=== PATIENT | female | born 1970 | race Caucasian/White ===

== ENCOUNTER 2016-09-20 14:42 | Emergency (ER) | payer BC, OTHER ==
[~2016-09-20] VITALS: Ht 162.6 cm; Wt 58.0 kg
[~2016-09-20 14:42] MED LIST: ALEV220T14 PO; ONDA4 PO
[2016-09-20 14:43] VITALS: BP 129/86; PULSE 99; RESP 12; TEMP 97.6; O2SAT 98
[2016-09-20 14:56] VITALS: BP 137/89; PULSE 96; RESP 18; TEMP 98.3; O2SAT 100
--- NOTE | 2016-09-20 15:10 | PD ---
HPI Chief Complaint: Respiratory Distress Time Seen by Provider: 15:06 Travel History International Travel<30 days: No Contact w/Intl Traveler<30days: No Traveled to known affect area: No History of Present Illness HPI 46-year-old female coming in with complaints of shortness of breath. Patient states she was recently admitted and discharged from [facility] in [place] with diagnosis of pulmonary embolism without cor pulmonale. Patient is currently on Ahlquist 10 mg twice a day for 5 days and then 5 mg twice a day 6 months. Patient states she went to her primary care physician Dr. Alcaraz today who had no idea what was going on according to the patient. Patient is upset and confused and wants to make sure she is safe. Patient is also scheduled to see a publicity consultant in follow-up in the next 2 weeks. Patient currently feels anxious, is worried about something worse happening. She has no acute symptoms otherwise. She has no known drug allergies. PFSH Past Medical History Diminished Hearing: No Musculoskeletal: Yes (herniated discs) Respiratory: Yes (PE ) ?: Not : 7 Para: 5 Miscarriage: 2 Past Surgical History Hysterectomy: Yes Social History Alcohol Use: No Tobacco Use: No Substance Use: No Allergies-Medications (Allergen,Severity, Reaction): Coded Allergies: No Known Allergies (Verified , 03/31/16) Reported Meds & Prescriptions Reported Meds & Active Scripts Active Zofran 4 Mg Tab (Ondansetron Hcl) 4 Mg Tab 4 Mg PO Q6HR Reported Aleve Arthritis (Naproxen Sodium) 220 Mg Tab 220 Mg PO BID Review of Systems Except as stated in HPI: all other systems reviewed are Neg General / Constitutional: No: Fever Eyes: No: Visual changes HENT: No: Headaches Cardiovascular: No: Chest Pain or Discomfort Respiratory: Positive: Shortness of Breath Gastrointestinal: No: Abdominal Pain Genitourinary: No: Dysuria Musculoskeletal: No: Pain Skin: No Rash Neurologic: No: Weakness Psychiatric: No: Depression Endocrine: No: Polydipsia Hematologic/Lymphatic: No: Easy Bruising Physical Exam Narrative GENERAL: Patient appears anxious and in mild distress. SKIN: Warm and dry. Normal color. Normal turgor. HEAD: Atraumatic. Normocephalic. EYES: Pupils equal and round. No scleral icterus. No injection or drainage. ENT: No nasal bleeding or discharge. Mucous membranes pink and moist. Pharynx is normal. NECK: Trachea midline. No JVD. Supple and nontender. CARDIOVASCULAR: Regular rate and rhythm. No murmurs gallops or rubs. RESPIRATORY: No accessory muscle use. Clear to auscultation. Breath sounds equal bilaterally. GASTROINTESTINAL: Abdomen soft, non-tender, nondistended. Hepatic and splenic margins not palpable. MUSCULOSKELETAL: Extremities without clubbing, cyanosis, or edema. No obvious deformities. NEUROLOGICAL: Awake and alert. No obvious cranial nerve deficits. Motor grossly within normal limits. Five out of 5 muscle strength in the arms and legs. Normal speech. PSYCHIATRIC: Appropriate mood and affect; insight and judgment normal. Data Data Last Documented VS Vital Signs Date Time Temp Pulse Resp B/P Pulse Ox O2 Delivery O2 Flow Rate FiO2 09/20/16 14:59 93 20 100 Room Air 09/20/16 14:56 98.3 137/89 MDM Medical Decision Making Medical Screen Exam Complete: Yes Emergency Medical Condition: No Differential Diagnosis Pulmonary emboli. Anxiety. Shortness of breath. Narrative Course Patient is discussed with Dr. Silvestre. Records from [facility] are requested and reviewed. Patient is seen by Dr. Silvestre. Patient is felt to be stable to be discharged home on the current treatment of Eliquist as previously prescribed. Patient is reassured, based on our review of her previous hospitalization records and are exam today that she should be fine and is appropriately treated. Patient should follow with Dr. Alarcon in 10-14 days as planned. Recommend follow with Dr. Wellington, the fire fighter crash fire and rescue as well. Patient is free to return at any time for worsening symptoms. Diagnosis Primary Impression: Pulmonary emboli Qualified Code: I26.09 - Other acute pulmonary embolism with acute cor pulmonale Referrals: Reta Wellington MD, Theodossis MD Patient Instructions: General Instructions Additional Instructions: Patient is felt to be stable to be discharged home on the current treatment of Eliquist as previously prescribed. Patient is reassured, based on our review of her previous hospitalization records and are exam today that she should be fine and is appropriately treated. Patient should follow with Dr. Alarcon in 10-14 days as planned. Recommend follow with Dr. Wellington, the fire fighter crash fire and rescue as well. Patient is free to return at any time for worsening symptoms. Med/Other Pt SpecificInfo: No Change to Meds Disposition: 01 DISCHARGE HOME Condition: Stable Miko Graf Sep 20, 2016 15:10
--- NOTE | 2016-09-20 16:46 | PD ---
Data Data Last Documented VS Vital Signs Date Time Temp Pulse Resp B/P Pulse Ox O2 Delivery O2 Flow Rate FiO2 09/20/16 14:59 93 20 100 Room Air 09/20/16 14:56 98.3 137/89 MDM Supervised Visit with DAPHNE: Yes Narrative Course The history, exam, and medical decision-making in the associated midlevel provider note were completed with my assistance. I reviewed and agree with the findings presented. I attest that I had a [id number] encounter with the patient on the same day, and personally performed and documented my assessment and findings in the medical record. *My assessment and Findings: This is a 46-year-old female who presents to the emergency department having been seen at [facility] and diagnosed with pulmonary emboli, started on Eliquis. The patient was confused by her discharge instructions, and she came here to try to understand what was going on. She said that she was getting mixed signals from the doctors there as to whether or not she even had a blood clot on her imaging. We obtained records from [facility]. They sent the discharge summary but failed to send CT reads. The discharge summary states pulmonary embolus. I told the patient I would continue eloquent sets instructed and follow-up with both Dr. Watkins as well as a general office dispatcher. I suspect that there was some uncertainty of the clinical significance of her PEs as they were likely subsegmental. At this point I encouraged her to continue anticoagulation until she follows up with hematology. Micki Silvestre MD Sep 20, 2016 16:46
== END 2016-09-20 17:20 | disposition home or self-care (01) ==
LOC: NEPE 14:42
DX: I26.99 Other pulmonary embolism without acute cor pulmonale (principal)
CPT/HCPCS: 99284

== ENCOUNTER 2017-09-01 08:06 | Day surgery (SDC) | payer OTHER ==
[~2017-09-01] VITALS: Ht 152.4 cm; Wt 54.7 kg
[2017-09-01] MEDS ORDERED: IOHEXOL 350 MG/ML 50 ML BTL (for Cath Lab) OTHER ONE (08:07)
[2017-09-01 08:44] VITALS: BP 134/83; PULSE 79; RESP 19; TEMP 98.5; O2SAT 99
[2017-09-01] MEDS ORDERED: NS 1000P @30 MLS/HR (KVO) IV SCH (08:45)
[2017-09-01] MEDS ORDERED: IBUP200C PO (08:53)
[2017-09-01] MEDS ORDERED: CYCL10TA PO (08:53)
[2017-09-01] MEDS ORDERED: CELE50CA PO (08:53)
[2017-09-01 08:58] LABS: AUTOMATED NEUTROPHIL # 5.3 TH/MM3 (1.8-7.7); BASOPHIL # 0.1 TH/MM3 (0-0.2); BASOPHIL % 0.8 % (0.0-2.0); EOSINOPHIL # 0.1 TH/MM3 (0-0.4); EOSINOPHIL % 1.2 % (0.0-4.0); HEMATOCRIT 35.1 % (35.0-46.0); HEMOGLOBIN 11.3 GM/DL (11.6-15.3); LYMPH % 17.8 % (9.0-44.0); LYMPHOCYTE # 1.3 TH/MM3 (1.0-4.8); MEAN CELL VOLUME 72.6 FL (80.0-100.0); MEAN CORPUSCULAR HEMOGLOBIN 23.3 PG (27.0-34.0); MEAN CORPUSCULAR HGB CONC 32.2 % (32.0-36.0); MEAN PLATELET VOLUME 7.2 FL (7.0-11.0); MONO % 6.1 % (0.0-8.0); MONOCYTE # 0.4 TH/MM3 (0-0.9); NEUT % 74.1 % (16.0-70.0); PLATELET COUNT 305 TH/MM3 (150-450); RED BLOOD COUNT 4.84 MIL/MM3 (4.00-5.30); RED CELL DISTRIBUTION WIDTH 16.5 % (11.6-17.2); WHITE BLOOD COUNT 7.2 TH/MM3 (4.0-11.0)
[2017-09-01 09:07] LABS: PROTHROMBIN TIME - PATIENT 9.9 SEC (9.8-11.6)
[2017-09-01 09:19] LABS: BICARBONATE 24.2 MEQ/L (21.0-32.0); CALCIUM 8.8 MG/DL (8.5-10.1); CREATININE 0.69 MG/DL (0.50-1.00)
[2017-09-01] MEDS ORDERED: HEPARIN-NS/PF INJ 1,000 ML ONE (11:10)
[2017-09-01] MEDS ORDERED: VERAPAMIL HCL 5 MG/2 ML VIAL ONE (11:11)
[2017-09-01] MEDS ORDERED: MIDAZOLAM HCL 2 MG/2 ML VIAL ONE (11:11)
[2017-09-01] MEDS ORDERED: NITROGLYCERIN INJ 5 ML ONE (11:11)
[2017-09-01] MEDS ORDERED: HEPARIN SODIUM - IV 10,000 UNITS/10 ML VIAL ONE (11:11)
--- NOTE | 2017-09-01 12:00 | CATHPROC ---
[employer] HIS Report Study Information Study Number Admission Scheduled Start Study Start [id number] Sep 01 2017 8:06AM 09/01/2017 Sep 01 2017 11:11AM [place] [facility] Cardiac Catheterization Admit Source Facility Department Other [facility] - Steam Table Worker Physician and Clinical Staff Initial Navid Dillard Languages And Literature InstructorMoiz Ko RN Languages And Literature Instructorander Aden RN, Nino Languages And Literature InstructorAshley Bajwa RN Recorder Segundo Zambrano,RT(R) Scrub Nikki KuhnRT(R) Procedures Performed Procedure Location (Site) Vessel Name Coronary Angiograms LCA Left Coronary Coronary Angiograms RCA Right Coronary L Heart Cath Equipment Time Cut Tobacco Bulker Description Size Mfg Part Number Used/Scraped TRANSDUCER, TRUWAVE [id number] 11:22 PERRY SANTACRUZ * Used W/STOCKCOCK *[id number] *[id number] [id number] *[id number] 11:22 [employer] PACK, CCL CUSTOM * Used *[id number] 11:22 [employer] SUPPORT, ARTERIAL ADULT [id number] *[id number] Used BAND, RADIAL COMPRESSION TR [id number] 11:54 [employer] MEDICAL 24CM Used SHORT 24 *[id number] 11:22 [employer] WIRE, EXCHANGE 260CM 3MMJ 260CM Used *[id number] 11:22 NAMIC MANIFOLD, 4 PORT * Used *[id number] 11:22 NYCOMED OMNIPAQUE, 350 MG, 150ML 150ML [id number] Used [id number] 11:22 [employer]AMING MEDICAL BLANKET,WARM AIR CCL * Used *[id number] SHEATH, FR6 TRANSRADIAL [id number] 11:22 [employer] FR 6 Used SLENDER 10CM *[id number] History: Allergies Allergy Reaction No Known Allergies History: Risk Factors Family History of Hypertension Dyslipidemia Previous MO Previous Heart Failure Premature CAD Yes No No No No Prior Valve Prior PCI Prior CABG Surgery No No No Cerebrovascular Peripheral Artery Chronic Lung On Dialysis Diabetes Disease Disease Disease No No No Yes No History: Symptoms/Diagnosis Selection Items Chest pain History: Stress Tests Stress or Imaging Studies Performed Yes Standard Exercise Stress Test No Stress Echo No Stress Test SPECT Stress Test SPECT Result Stress Test SPECT Ischemia Risk/Extent Yes Positive Low Stress Test CMR No Cardiac CTA Coronary Calcium Score No No History: Other Disease Selection Items HTN History: Other Current Smoker Quit Packs a Day Years Used Pack Years No 15 Years Ago 1 10 10 Labs Hgb (g/dl) Hct (%) RBC (MIL/MM3) WBC (l/cumm) Platelets (thousands) 11.60-17.00 35.00-51.00 4.00-5.90 4.00-11.00 150.00-450.00 11.3 35.1 4.8 7.2 305 Glucose (mg/dl) BUN (mg/dl) Creatinine (mg/dl) BUN:Creatinine (1:x) 74.00-106.00 7.00-18.00 0.50-1.30 10.00-20.00 94 16 0.7 22.9 Na (meq/l) K (meq/l) Cl (meq/l) CO2 (mmol/L) Ca (mg/dl) 136.00-145.00 3.50-5.10 98.00-107.00 21.00-32.00 8.50-10.10 137 3.8 105 24.2 8.8 PT (sec) PTT (sec) INR (PTT:PT) 9.80-11.60 24.30-30.10 0.90-1.10 9.9 24.5 1 CPK-MB (ng/ML) 0.50-3.60 Not Drawn Medication Medication Total Dose (Bolus/Oral) Medication Total Dosage/Unit 1% XYLOCAINE 5 mL RADIAL COCKTAIL 5 mL (Bolus) VERSED 0.5 mg Medications (Bolus/Oral) Medication Time Given Dosage/Unit Administered By Reason 09/01/2017 11:37:24 VERSED 0.5 mg Moiz Shirley AM 0.5 mg VERSED given in lab by Moiz Shirley RN in Left Antecubital via Peripheral IV. 09/01/2017 11:37:55 1% XYLOCAINE 5 mL Navid Morales AM 5 mL 1% XYLOCAINE given in lab by Navid Morales in Right Radial via Subcutaneous. 09/01/2017 11:39:50 Ntg 200mcg Verapamil 2.5mg Heparin RADIAL COCKTAIL 5 mL (Bolus) Navid Morales AM 2000U 5 mL (Bolus) RADIAL COCKTAIL given in lab by Navid Morales in Right Radial via Radial. Using [S olution Name]. Reason: Ntg 200mcg Verapamil 2.5mg Heparin 2000U. Medication (Drip) Medication Time Given Dosage/Unit Concentration/Unit Diluent (ml) Solution 09/01/2017 11:12:56 IV Solutions 0 mL (IV) 500 NaCl .9 AM IV Solutions given in lab by Nino Aden RN in Left Antecubital via Peripheral IV. Pump/Drip Flow = 20 ml/hr using NaCl .9. Initial Case Assessment Cardiovascular HR Rhythm NIBP Chest Pain 72 Sinus 116/70 0 Edema Present Skin color Skin None Normal Warm Dry Circulatory - Right Pulses Dorsalis Pedis Femoral Radial 2 2 2 Scale (0,1,2,3,4,d) Scale (0,1,2,3,4,d) Neurological State Oriented to time-place- Alert Moves all extremities person Respiration - General Respiration Rate SpO2 (%) O2 (lpm) (B/min) 13 100 0 Final Case Assessment Cardiovascular HR Rhythm NIBP Chest Pain 90 Sinus 111/76 0 Edema Present Skin color Skin None Normal Warm Dry Circulatory - Right Pulses Dorsalis Pedis Femoral Radial 2 2 2 Scale (0,1,2,3,4,d) Scale (0,1,2,3,4,d) Neurological State Oriented to time-place- Alert Moves all extremities person Respiration - General Respiration Rate SpO2 (%) O2 (lpm) (B/min) 10 100 0 Chronological Log Time Study Chronological Log 11:12:13 Patient arrived via Bed. 11:12:14 Patient Name, D.O.B, / Armband Verified By R.N. 11:12:14 Consent signed by the physician and the patient and verified by the Steam Table Worker staff. 11:12:15 Pre-op and post- op instructions given; patient acknowledges understanding of instructions. 11:12:16 Verbal Stimulation=2 Physical Stimulation=2 Airway=2 Respiration=2 TOTAL=8. (0=absent, 1=li mited, 2=present) 11:12:18 Presedation assessment performed by Steam Table Worker RN. 11:12:46 Allens test performed on the right radial and ulnar artery. 11:12:49 Patient has been NPO for More than 6Hrs. 11:12:50 Skin Breakdown- none per patient. 11:12:51 Patient Warmer Placed on the Table. 11:12:52 Steve Prominences Protected 11:12:55 A # 20 IV was noted in the Antecubital (left). Grade = 0 IV Solutions given in lab by Nino Aden RN in Left Antecubital via Peripheral IV. Pump/Drip F low = 20 ml/hr using NaCl 11:12:56 .9. 11:12:57 History and physical on the chart or being dictated. Vitals capture started with the following parameters, Patient=Adult, Interval=5 min, Initial Pr xkwlzd=746 mmHg, 11:18:51 Deflation Rate=5 mmHg, Cuff placed on Left Arm 11:19:32 HR=66 bpm, RSXJ=100/70 mmhg, JyH2=210.0 %, Resp=9 B/min, Pain=0, Reba=10, Biswas=2 Assessment: Initial Case, HR=72 BPM, Rhythm=Sinus, IJWZ=119/70 mmhg, Chest Pain=0, Edema=None, Color=Normal, Skin = Warm, Dry 11:22:27 Right Pulses: Oscar Ped=2, Femoral=2, Radial=2 Neurological: State=Alert, Ox3, HYMAN Respiration: Resp=13 B/min, QuB3=259 %, O2=0 lpm 11:22:32 Right Radial and groin(s) prepped with 2% chlorhexidine, and draped after a 3 min. waiting time. 11:22:49 Reference ECG taken 11:24:23 HR=95 bpm, SCUL=696/74 mmhg, Resp=26 B/min, Pain=0, Reba=10, Biswas=2 11:26:34 Pressure channel 1 zeroed. 11:29:20 HR=72 bpm, UYVA=499/74 mmhg, Resp=10 B/min, Pain=0, Reba=10, Biswas=2 11:30:25 MD paged 11:31:29 MD arrived. 11:34:21 HR=83 bpm, XPET=550/79 mmhg, IpR8=108.0 %, Resp=9 B/min, Pain=0, Reba=10, Biswas=2 11:37:24 0.5 mg VERSED given in lab by Moiz Shirley RN in Left Antecubital via Peripheral IV. Time Out. Correct patient, correct procedure, correct physician, power injector not loaded with contrast with surgical 11:37:31 team present. Time Out Concurred by MD and individual staff in procedure. 11:37:42 Case Start 11:37:55 5 mL 1% XYLOCAINE given in lab by Navid Morales in Right Radial via Subcutaneous. 11:39:02 Access site was Radial Artery. 11:39:22 HR=76 bpm, DMFW=027/72 mmhg, Resp=12 B/min, Pain=0, Reba=10, Biswas=2 A SHEATH, FR6 TRANSRADIAL SLENDER 10CM FR 6 was advanced into the Radial (right) using the Perc utaneous 11:39:25 technique. 5 mL (Bolus) RADIAL COCKTAIL given in lab by Navid Morales in Right Radial via Radial. Us ing [Solution Name]. 11:39:50 Reason: Ntg 200mcg Verapamil 2.5mg Heparin 2000U. A JR 4.0 INFINITI CATHETER FR 5 was advanced over a wire. OMNIPAQUE, 350 MG, 150ML 150ML was us ed for 11:41:01 injections. Recorded Pressure: LV, HR=93, Condition=Condition 1 11:42:11 (Left Ventricle) LV 108/2/4 Recorded Pressure: LV, Ao, HR=87, Condition=Condition 1 11:42:24 (Left Ventricle) LV 106/2/4, (Aorta) Ao 115/77/94 Recorded Pressure: Ao, HR=92, Condition=Condition 1 11:42:44 (Aorta) Ao 108/75/91 11:42:56 The RCA was injected and visualized at various angles. OMNIPAQUE, 350 MG, 150ML 150ML use d. After removing the current catheter a JL 3.5 INFINITI CATHETER FR 5 was advanced over a WIRE, EXCHANGE 260CM 11:44:02 3MMJ 260CM. 11:44:25 HR=98 bpm, ZPPF=965/74 mmhg, SpO2=98.0 %, Resp=14 B/min, Pain=0, Reba=10, Biswas=2 11:46:54 The LCA was injected and visualized at various angles. OMNIPAQUE, 350 MG, 150ML 150ML use d. 11:48:58 Catheter was removed 11:49:24 Case End 11:49:25 HR=90 bpm, YEFY=201/76 mmhg, SpO2=99.0 %, Resp=14 B/min, Pain=0, Reba=10, Biswas=2 Radial Compression Device Used. 10 mLs of air placed in BAND, RADIAL COMPRESSION TR SHORT 24 2 4CM. Affected 11:53:27 hand 100 % O2 saturation. 11:54:13 Vitals capture stopped. 11:54:16 Cine recording checked. 11:54:17 No case complications noted. 11:54:19 Bedside Report will be given. 11:54:24 A Left Heart Cath was performed. Assessment: Final Case, HR=90 BPM, Rhythm=Sinus, DCBE=902/76 mmhg, Chest Pain=0, Edema=None, Color=Normal, Skin = Warm, Dry 11:54:27 Right Pulses: Oscar Ped=2, Femoral=2, Radial=2 Neurological: State=Alert, Ox3, HYMAN Respiration: Resp=10 B/min, UrZ3=944 %, O2=0 lpm 11:55:17 Patient moved to stretcher End Study - Contrast Media Used In Study Contrast Total Opened (mL) Total Used (mL) Total Wasted (mL) Omnipaque 150 35 115 End Study - Maximum Contrast Load Max Contrast Load (mL) 385.7 End Study - Radiation Exposure Fluoro Time (minutes) 1.9 End Study - Patient Disposition Complications Transferred To Interventional Outcome No Outpatient Bed No attempt made
[2017-09-01] MEDS ORDERED: ACETAMINOPHEN 325 MG TAB PO ONE (12:30)
--- NOTE | 2017-09-01 12:41 | MA ---
cc: NAVID BOYLE DO DATE OF PROCEDURE September 01, 2017 PROCEDURE Left heart catheterization, coronary angiogram, moderate sedation 15 minutes. PREPROCEDURE DIAGNOSIS Chest pain, abnormal stress test. POSTPROCEDURE DIAGNOSIS Mild coronary artery disease. MEDICATIONS 1. Versed 0.5 mg. 2. Verapamil 2.5 mg. 3. Nitro 200 mcg. 4. Heparin 2200 units. CONTRAST 35 cc FLUOROSCOPY 1.9 minutes ANESTHESIA Moderate sedation, 15 minutes ESTIMATED BLOOD LOSS 10 cc PROCEDURAL SUMMARY Nisha Stokc is a pleasant 47-year-old female who sees my partner Dr. Montana in the office and presented due to chest pain and shortness of breath. She underwent an echocardiogram and there was a mild cardiomyopathy noted with an ejection fraction of 45% and she underwent a stress test which showed possible inferior ischemia, although difficult to determine. Because of these, as well as her chest pain, she was recommended cardiac catheterization. The risks, benefits and alternatives were explained her and she consented as such. She was brought to lab and prepped in the usual sterile fashion. The right radial artery was accessed using a modified Seldinger technique and placement of a 5/6 Beninese slender sheath. This was easily aspirated and flushed. A JR-4 was advanced over a J-wire to the ascending aorta and across the aortic valve for measurement of left ventricular pressure. This was pulled back across the aortic valve showing no significant gradient of aortic stenosis. JR-4 was used for selective angiography of the right coronary artery system. This was exchanged out for a JL-3.5 which was used for selective angiography of the left coronary artery system. JL-3.5 was removed over a J-wire. A radial band was placed over the arteriotomy site for hemostasis. The patient left the sugar laboratory assistant cardiovascularly stable. FINDINGS Left main is a normal sized vessel with no significant disease. It bifurcates into an LAD and circumflex. LAD normal-sized normal size vessel with no significant disease in the proximal portion. Midportion does taper down distally, but no significant disease. Circumflex is a normal sized vessel with no significant disease. It gives off one obtuse marginal with no significant disease. RCA is a moderate sized vessel with no significant disease. It is a dominant vessel with no disease distally. LVEDP 4. IMPRESSIONS 1. Chest pain most likely noncoronary in nature. 2. Mild coronary artery disease by cardiac catheterization. RECOMMENDATIONS 1. Miss Stock appears to have mild coronary artery disease and would recommend continued medical management. 2. She will be discharged today with instructions not to lift more than 10 pounds for the next three days. 3. She will follow up with Dr. Montana for further workup. Thank you for allowing me to see Nisha Alves. If there are any questions, please do not hesitate to call. Navid Boyle DO VGP/DJL /11:49 AM /12:16 PM
--- NOTE | 2017-09-01 22:11 | EKG ---
Date Performed: 09/01/2017 Time Performed: 08:55:12 PTAGE: 47 years EKG: Sinus rhythm . Inferior T wave changes are nonspecific Borderline ECG PREVIOUS TRACING : 03/31/2016 12.30 Compared to prior tracing no significant change DOCTOR: Cesario Martines Interpretating Date/Time 09/01/2017 22:10:45
== END 2017-09-01 15:23 | disposition home or self-care (01) ==
LOC: HDIC 08:06 → HDOC 08:06
PROVIDERS: ATTEND Nuclear Medicine Nuclear Cardiology
DX: I25.10 Atherosclerotic heart disease of native coronary artery without angina pectoris (principal); R94.39 Abnormal result of other cardiovascular function study
CPT/HCPCS: 80048; 84702; 85025; 85610; 85730; 93005; 93458; C1769; C1893; J1644; J2250; J3010; Q9967